=== PATIENT | male | born 1980 | race African-American/Black ===

== ENCOUNTER 2018-09-26 03:24 | Observation (INO) | payer BC ==
[~2018-09-26] VITALS: Ht 180.3 cm; Wt 122.9 kg
[2018-09-26] VITALS (12 sets, daily range): BP systolic 126–164; BP diastolic 57–109; PULSE 75–105; TEMP 98–99.2
[2018-09-26 04:19] LABS: BASO % 0.2 % (0.0-2.0); EOS % 0.2 % (0-4.0); GRAN # 11.6 (1.4-6.5); GRAN % 83.5 % (42.2-75.2); HEMOGLOBIN 15.9 g/dl (13.5-18.0); LYMPH # 1.7 (1.2-3.4); LYMPH % 11.9 % (20.0-51.0); MEAN CELL VOLUME 74 fl (80.0-100.0); MEAN CORPUSCULAR HEMOGLOBIN 26 pg (27.0-31.0); MEAN CORPUSCULAR HGB CONC 35 g/dl (33.0-37.0); MONO # 0.5 (0.1-0.6); MONO % 3.9 % (1.7-9.3); PLATELET COUNT 258 K/mm3 (130-400); RED BLOOD COUNT 6.18 M/mm3 (4.20-5.60); REDCELL DISTRIBUTION WIDTH-CV 14.4 % (11.5-14.5)
[2018-09-26 04:32] LABS: ALBUMIN 4.3 gm/dL (3.5-5.0); C-REACTIVE PROTEIN 1.7 mg/dL (0.0-0.9); CALCIUM 9.4 mg/dL (8.4-10.2); CREATININE, serum 1.15 mg/dL (0.66-1.25); TOTAL PROTEIN 8.1 gm/dL (6.4-8.2)
== END 2018-09-26 18:09 | disposition home or self-care (01) ==
LOC: COL.ER 03:24 → SURG 05:11
PROVIDERS: Emergency Medicine
DX: K35.80 Unspecified acute appendicitis (principal); N20.0 Calculus of kidney; I10 Essential (primary) hypertension
CPT/HCPCS: A4216; G0378; J0690; J0696; J1100; J1170; J1885; J2060; J2270; J2405; J2704; J2710; J3010; J7030; J7120; Q9967

== ENCOUNTER 2019-05-06 11:02 | Emergency (ER) | payer BC ==
[~2019-05-06] VITALS: Ht 180.3 cm; Wt 118.2 kg
[2019-05-06 11:08] VITALS: PULSE 85; TEMP 97.2
[2019-05-06] MEDS ORDERED: FLEXERIL 1010 MG/TAB PO (12:49)
[2019-05-06] MEDS ORDERED: LIDODERM 5% PATC1 EA TP (12:49)
[2019-05-06] MEDS ORDERED: NORCO 325 MG-7.1 TAB PO (12:49)
[2019-05-06 13:53] VITALS: BP 145/80
== END 2019-05-06 14:35 | disposition home or self-care (01) ==
LOC: COL.ER 11:02
DX: S39.012A Strain of muscle, fascia and tendon of lower back, initial encounter (principal); I10 Essential (primary) hypertension; Z90.89 Acquired absence of other organs; Z88.8 Allergy status to other drugs, medicaments and biological substances; X50.1XXA Overexertion from prolonged static or awkward postures, initial encounter
CPT/HCPCS: J1885

== ENCOUNTER 2020-04-18 11:02 | Inpatient (IN) | payer BC ==
[~2020-04-18] VITALS: Ht 180.3 cm; Wt 128.1 kg
[~2020-04-18 11:02] MED LIST: FLEXERIL 1010 MG/TAB PO; LIDODERM 5% PATC1 EA TP; NORCO 325 MG-7.1 TAB PO
[2020-04-18 12:24] LABS: BASO % 0.2 % (0.0-2.0); GRAN # 9.1 (1.4-6.5); GRAN % 78.7 % (42.2-75.2); HEMATOCRIT 43.5 % (42.0-52.0); HEMOGLOBIN 15.4 g/dl (13.5-18.0); LYMPH # 1.7 (1.2-3.4); LYMPH % 14.4 % (20.0-51.0); MEAN CELL VOLUME 73 fl (80.0-100.0); MEAN CORPUSCULAR HEMOGLOBIN 26 pg (27.0-31.0); MEAN CORPUSCULAR HGB CONC 35 g/dl (33.0-37.0); MEAN PLATELET VOLUME 9.8 fl (7.4-10.4); MONO # 0.7 (0.1-0.6); MONO % 6.1 % (1.7-9.3); PLATELET COUNT 229 K/mm3 (130-400); RED BLOOD COUNT 5.94 M/mm3 (4.20-5.60); REDCELL DISTRIBUTION WIDTH-CV 15.4 % (11.5-14.5)
[2020-04-18 12:34] LABS: ALBUMIN 4.1 gm/dL (3.5-5.0); BILIRUBIN,TOTAL 0.8 mg/dL (0.0-1.0); CALCIUM 9.4 mg/dL (8.4-10.2); CREATININE, serum 1.54 (0.66-1.25); POTASSIUM 3.6 mmol/L (3.4-5.0); TOTAL PROTEIN 8.2 gm/dL (6.4-8.2)
[2020-04-18 13:58] LABS: PH 6 (5-8); SQUAMOUS EPITHELIAL 0-2 /hpf; URINE APPEARANCE Clear; URINE BACTERIA None Seen /hpf; URINE BILIRUBIN Negative (NEGATIVE); URINE BLOOD 1+ (NEGATIVE); URINE COLOR Yellow; URINE GLUCOSE Negative (NEGATIVE); URINE KETONE Negative (NEGATIVE); URINE LEUKOCYTE ESTERASE Negative (NEGATIVE); URINE NITRATE Negative (NEGATIVE); URINE PROTEIN(semi-quant) Negative (NEGATIVE); URINE UROBILINOGEN Negative (NEGATIVE)
[2020-04-18 14:02] LABS: COLLECTION METHOD CLEAN CATCH
--- NOTE | 2020-04-18 15:17 | NUR ---
PATIENT ADMITTED TO ROOM 306 COVID ISOLATION RULE OUT. HE VERBALIZES UNDERSTANDING FOR THIS ISOLATION. NO OTHER NEEDS AT THIS TIME. FULL LIQUID DIET HAS ARRIVED
[2020-04-18 15:19] VITALS: BP 180/100; PULSE 92; TEMP 100.8
[2020-04-18 18:13] VITALS: PULSE 106; TEMP 102
[2020-04-18 18:15] VITALS: BP 202/100
--- NOTE | 2020-04-18 18:30 | NUR ---
Patient states that his headache is back. I have rechecked BP and have given prn apresoline at this time.
[2020-04-18 20:16] VITALS: BP 176/76; PULSE 110; TEMP 103.7
--- NOTE | 2020-04-18 20:27 | NUR ---
Pt assessment completed. PT alert and oriented x4. Vital signs obtained- BP 176/76, HR 110, and oral temp 103.7. Pt states he is having thobbing pain to his head that is a 7/10. IVF infusing per orders to right AC IV without complications. Pt denies any other needs at this time. Call light within reach. Will continue to monitor.
--- NOTE | 2020-04-18 21:11 | NUR ---
Call placed to AICHA Humphries, and updated on patient's VS and headache. New orders received for APAP, Motrin, Appresoline, and Norvasc. Given per orders.
[2020-04-18 21:51] VITALS: BP 147/78; PULSE 111; TEMP 103.1
[2020-04-18 23:42] VITALS: BP 151/75; PULSE 95; TEMP 99.5
[2020-04-19] VITALS (8 sets, daily range): BP systolic 142–182; BP diastolic 66–102; PULSE 99–125; TEMP 100.4–104.3
--- NOTE | 2020-04-19 02:36 | NUR ---
Patient had temperature of 100.4. Also complained of headache. Given PRN APAP.
--- NOTE | 2020-04-19 06:10 | NUR ---
Pt awake on and off throughout the night. Temp, BP, and HR elevated during the night. One time dose of tylenol and motrin given per orders for temp of 103.7. PRN tylenol given x1 for temperature of 100.4. Complaints of a "throbbing headache" throughout night. IVF infusing per orders to right AC IV without complications. Pt denies any other needs at this time. Call light within reach. Will continue to monitor.
--- NOTE | 2020-04-19 07:10 | NUR ---
Report given to PAULINA Vazquez
[2020-04-19 09:59] LABS: BASO % 0.2 % (0.0-2.0); GRAN # 8.2 (1.4-6.5); GRAN % 77.7 % (42.2-75.2); HEMATOCRIT 41.6 % (42.0-52.0); HEMOGLOBIN 14.5 g/dl (13.5-18.0); LYMPH # 1.6 (1.2-3.4); LYMPH % 15.5 % (20.0-51.0); MEAN CELL VOLUME 73 fl (80.0-100.0); MEAN CORPUSCULAR HEMOGLOBIN 25 pg (27.0-31.0); MEAN CORPUSCULAR HGB CONC 35 g/dl (33.0-37.0); MEAN PLATELET VOLUME 9.9 fl (7.4-10.4); MONO # 0.7 (0.1-0.6); MONO % 6.2 % (1.7-9.3); PLATELET COUNT 193 K/mm3 (130-400); RED BLOOD COUNT 5.71 M/mm3 (4.20-5.60)
[2020-04-19 10:17] LABS: CALCIUM 8.5 mg/dL (8.4-10.2); CREATININE, serum 1.29 (0.66-1.25); POTASSIUM 3.6 mmol/L (3.4-5.0)
--- NOTE | 2020-04-19 14:59 | NUR ---
SW contacted the patient via room telephone to complete initial intake. The patient lives in [place] with his , Isabela and their children. The patient denies DME use and is independent with ADLs. The patient's PCP is Dr. Regan and patient receives medications from [facility] pharmacy with no difficulties. The patient does not have advanced directives in the EMR. The patient plans to return home at discharge with Isabela providing transportation. ALETA will continue to follow to ensure a safe discharge.
--- NOTE | 2020-04-19 21:15 | NUR ---
Pt assessment completed and documented. Pt alert and oriented x4. Pt states he is having 8/10 throbbing pain located to his head. Temperature 103.3 at this time. PRN tylenol given per orders. IVF infusing per orders to right ac IV site without complications. Pt states he has still not had a bowel movement. Pt denies any other needs at this time. Call light within reach. Will continue to monitor.
[2020-04-20] VITALS (12 sets, daily range): BP systolic 131–167; BP diastolic 75–90; PULSE 107–125; TEMP 99.7–103.6
--- NOTE | 2020-04-20 05:31 | NUR ---
Pt stated he was unable to sleep last night due to headache. Pt stated he did not want anything for headache other than PRN tylenol becauase "the roxicodone did not work". Temperature elevated throughout the night. AICHA Humphries notified of temperature with orders received. PRN tylenol given x2 per orders for fever. One time dose of Motrin given per orders for fever. IVF infusing to right ac IV per orders. Pt denies any other needs at this time. Call light within reach. Will continue to monitor.
--- NOTE | 2020-04-20 06:47 | NUR ---
REPORT GIVEN TO PAULINA KASPER
[2020-04-20 06:49] LABS: BASO % 0.3 % (0.0-2.0); GRAN # 8.1 (1.4-6.5); GRAN % 71.6 % (42.2-75.2); HEMATOCRIT 43.5 % (42.0-52.0); HEMOGLOBIN 15.4 g/dl (13.5-18.0); LYMPH # 2.3 (1.2-3.4); LYMPH % 20.2 % (20.0-51.0); MEAN CELL VOLUME 73 fl (80.0-100.0); MEAN CORPUSCULAR HEMOGLOBIN 26 pg (27.0-31.0); MEAN CORPUSCULAR HGB CONC 35 g/dl (33.0-37.0); MEAN PLATELET VOLUME 10.3 fl (7.4-10.4); MONO # 0.8 (0.1-0.6); MONO % 7.5 % (1.7-9.3); PLATELET COUNT 198 K/mm3 (130-400); RED BLOOD COUNT 5.96 M/mm3 (4.20-5.60); REDCELL DISTRIBUTION WIDTH-CV 15.7 % (11.5-14.5)
[2020-04-20 07:09] LABS: CALCIUM 8.4 mg/dL (8.4-10.2); CREATININE, serum 1.27 (0.66-1.25); POTASSIUM 3.9 mmol/L (3.4-5.0)
--- NOTE | 2020-04-20 09:01 | NUR ---
Pt assessment complete. Pt is laying in bed upon entry. He is A/O x4. His breathing is even and unlabored on RA. Pt denies SOB or cough. No N/V. Pt denies having any stools overnight. Pt reports having a headache that has been unrelieved with medication. No other pain. Cool rags given to patient for elevated temperature. Pt requesting shower later this am. Abx and POC discussed with patient who verbalizes understanding. No needs at this time. Call light within reach.
--- NOTE | 2020-04-20 12:42 | NUR ---
Pt showered states he feels the best he has in a while. Temperature down. Headache has improved. Still no stools. POC discussed with patient who verbalizes understanding. No needs at this time.
--- NOTE | 2020-04-20 13:31 | NUR ---
ALETA contacted the patient via room phone to revisit the discharge plan. The patient plans to return home with his family. ALETA provided a copy of Covid-19 Home Care Discharge Instructions to the patient via his nurse. Will continue to follow.
--- NOTE | 2020-04-20 19:19 | NUR ---
Rested well through the day. Continued to have elevated temperatures, little relief with PRN Tylenol and cold packs. Pt reports lack of appetite this afternoon but no diarrhea. Report given to PAULINA Zhang and PAULINA Garrett.
--- NOTE | 2020-04-20 20:02 | NUR ---
Pt assessment completed and vital signs obtained. Temperature 103.2. PRN tylenol given per orders for fever. Complaints of throbbing pain to head that is rated 8/10. PRN roxicodone given per orders for headache per pt request. IVF infusing per orders to right AC IV. Pt denies any other needs at this time. Call light within reach. Will continue to monitor.
[2020-04-21] VITALS (7 sets, daily range): BP systolic 117–168; BP diastolic 81–93; PULSE 105–114; TEMP 98.9–103.1
--- NOTE | 2020-04-21 05:05 | NUR ---
Pt resting in bed at this time. Pt had uneventful night. Pt stated he was actually able to sleep tonight after receiving PRN melatonin. Lowest temp during the night was 102.4. PRN tylenol given x3 per orders for fevers. Complaints of throbbing headache on and off throughout the night. PRN roxicodone given x1 per orders for pain. IVF infusing per orders to right AC IV. Pt denies any other needs at this time. Call light within reach. Will continue to monitor.
[2020-04-21 07:52] LABS: BASO % 0.4 % (0.0-2.0); EOS % 0.1 % (0-4.0); GRAN # 7.3 (1.4-6.5); GRAN % 65.2 % (42.2-75.2); HEMATOCRIT 41.7 % (42.0-52.0); HEMOGLOBIN 14.8 g/dl (13.5-18.0); LYMPH # 2.6 (1.2-3.4); LYMPH % 23.4 % (20.0-51.0); MEAN CELL VOLUME 73 fl (80.0-100.0); MEAN CORPUSCULAR HEMOGLOBIN 26 pg (27.0-31.0); MEAN CORPUSCULAR HGB CONC 36 g/dl (33.0-37.0); MONO # 1.2 (0.1-0.6); MONO % 10.5 % (1.7-9.3); PLATELET COUNT 199 K/mm3 (130-400); REDCELL DISTRIBUTION WIDTH-CV 15.4 % (11.5-14.5)
[2020-04-21 08:11] LABS: ALBUMIN 3.7 gm/dL (3.5-5.0); BILIRUBIN,TOTAL 0.8 mg/dL (0.0-1.0); CALCIUM 8.2 mg/dL (8.4-10.2); CREATININE, serum 1.27 (0.66-1.25); MAGNESIUM 2.2 mg/dL (1.6-2.3); POTASSIUM 3.7 mmol/L (3.4-5.0); TOTAL PROTEIN 7.6 gm/dL (6.4-8.2)
[2020-04-21 08:20] LABS: INR 1.3 (0.8-3.0); PROTHROMBIN TIME 14.9 SECONDS (9.7-12.8)
--- NOTE | 2020-04-21 11:01 | NUR ---
Patient is alert and oriented. Temp is 102.5. administered Tylenol for fever and moderate pain. Patient was started on Vancomycin IV and Zithromax PO. IV fluid was discontinued. O2 sat is at 94% on RA. Dr Boudreaux shared his concerns saying the O2 sat is low for an healthy adult Male, he said oxygen should be titered as needed, and Hospitalist should be informed when patient is put oxygen.
--- NOTE | 2020-04-21 17:31 | NUR ---
chest xray from today does not show anything different from the previous one. Patient still remain Tachy and Febrile. Tylenol was administered. Patient was encouraged to use icepack for intervention.
--- NOTE | 2020-04-21 20:20 | NUR ---
Received report from [facility]. Patient is febrile, Tylenol given. Flushed INT on right hand and patient complains of pain. Removed INT since patient still have INT on right AC. He requested to have a shower.
--- NOTE | 2020-04-21 22:59 | NUR ---
Patient's INT on right AC is already leaking once flushed. Removed INT. Reinserted at left AC, G22.
[2020-04-22] VITALS (7 sets, daily range): BP systolic 148–174; BP diastolic 76–102; PULSE 91–109; TEMP 98.4–102.1
--- NOTE | 2020-04-22 03:27 | NUR ---
Patient complains of feeling of gasping. He states that he would fall asleep and suddenly the gasping feeling would wake him up and afterwards he would feel okay again. This nurse asked if he feels like he has difficulty of breathing or chest pain and he denies. He said he can't explain exactly how it felt like but he uses the word gasping. Checked his vital signs and SPO2 is at 95%. He is febrile with temp of 102.1. He verbalizes also the feeling of bloatedness since he haven't poop yet in how many days. He said his last bowel movement was Sunday. Tylenol PRN given. Called Shayy HALE to relay the concerns of the patient. She ordered Simethicone chewable. Will re-check patient after an hour.
--- NOTE | 2020-04-22 06:14 | NUR ---
Patient's fever is not consistent anymore. Highest temp all night is 102.1F. Tylenol was given for that. Latest temp is 99.1F. He states his headache is much better now. He didn't ask for pain meds for his headache. Linens were changed. Will endorse to day shift nurse.
[2020-04-22 07:59] LABS: BASO # 0.1 (0.0-0.2); BASO % 0.5 % (0.0-2.0); EOS % 0.2 % (0-4.0); GRAN % 62.2 % (42.2-75.2); HEMATOCRIT 38.8 % (42.0-52.0); HEMOGLOBIN 13.7 g/dl (13.5-18.0); LYMPH # 2.4 (1.2-3.4); LYMPH % 24.7 % (20.0-51.0); MEAN CELL VOLUME 73 fl (80.0-100.0); MEAN CORPUSCULAR HEMOGLOBIN 26 pg (27.0-31.0); MEAN CORPUSCULAR HGB CONC 35 g/dl (33.0-37.0); MEAN PLATELET VOLUME 10.7 fl (7.4-10.4); MONO # 1.1 (0.1-0.6); MONO % 11.7 % (1.7-9.3); PLATELET COUNT 189 K/mm3 (130-400); RED BLOOD COUNT 5.33 M/mm3 (4.20-5.60)
[2020-04-22 08:03] LABS: ALBUMIN 3.4 gm/dL (3.5-5.0); CALCIUM 8.3 mg/dL (8.4-10.2); CREATININE, serum 1.04 (0.66-1.25); MAGNESIUM 2.2 mg/dL (1.6-2.3); TOTAL PROTEIN 7.1 gm/dL (6.4-8.2)
--- NOTE | 2020-04-22 08:32 | NUR ---
Pt awake and alert this morinung upon entry, no C/O pain at this time, talkative, shift assessments complete, left Pt call light in reach, bed in lowest position.
--- NOTE | 2020-04-22 16:05 | NUR ---
Hospitalist informed SW that the patient's employer needed some information about hospitization and that the patient needed an email to send it to. SW contacted the patient via room telephone. SW provided the patient with email. SW received the letter. SW to staff with hospitalist about this letter.
--- NOTE | 2020-04-22 18:25 | NUR ---
Pt resting in the room doing well, no C/O pain throughout today, VS have re,mained stable.
[2020-04-23] VITALS: BP 158/102; PULSE 92; TEMP 98.5
--- NOTE | 2020-04-23 06:16 | NUR ---
Max temperature tonight was 100.8 at 2200. Tylenol administered for this and fever broke an hour later to 98.3. Patient has complained of a mild headache throughout the night but has gotten lots of rest. Will continue to monitor.
[2020-04-23 08:08] VITALS: BP 137/75; PULSE 94; TEMP 100.2
--- NOTE | 2020-04-23 08:24 | NUR ---
Pt sleeping upon entry, easily awakened, no C/O pain at this time, shift assessments complete, left Pt call light in reach, bed in lowest position.
[2020-04-23 13:14] VITALS: BP 120/69; PULSE 92; TEMP 99.3
--- NOTE | 2020-04-23 15:43 | NUR ---
ALETA gave the letter to the patient's nurse. ALETA attempted to contact the patient's room to inform him and revisit the discharge plan. He did not answer. Will continue to monitor.
[2020-04-23 16:51] VITALS: BP 131/77; PULSE 104; TEMP 99.6
--- NOTE | 2020-04-23 18:20 | NUR ---
Pt resting in the room today, no C/O pain throughout the day. VS have remained stable.
--- NOTE | 2020-04-23 19:20 | NUR ---
Received report from Taj. Seen patient awake, lying in bed. He is febrile with temp of 100.8F. Tylenol PRN given. Patient denies pain. States he doesn't have headache now. Will continue to monitor.
[2020-04-23 19:22] VITALS: BP 152/80; PULSE 102; TEMP 100.8
[2020-04-23 21:36] VITALS: TEMP 99.3
[2020-04-24] VITALS (7 sets, daily range): BP systolic 104–156; BP diastolic 71–84; PULSE 93–104; TEMP 98.5–101.2
--- NOTE | 2020-04-24 06:10 | NUR ---
Patient still had febrile episode. Denies headache and diarrhea. Will endorse to day shift nurse.
--- NOTE | 2020-04-24 09:02 | NUR ---
Pt awake and alert upon entry, no C/O pain at this time, shift assessments complete, left Pt call light in reachk, bed in lowest position.
--- NOTE | 2020-04-24 19:22 | NUR ---
Pt resting in the room today, no C/O pain, VS have remained stable.
--- NOTE | 2020-04-24 20:00 | NUR ---
Received report from PAULINA Vang. A/Ox4. Denies any pain or discomfort. Meds administered. INT to LAC intact, flushed, dressing cdi. Pt showered this evening. Tele monito in place. Needs met at this time. call light within reach. Ambulatory. INdepedent in room.
[2020-04-25 03:45] VITALS: BP 129/67; PULSE 86; TEMP 99.4
--- NOTE | 2020-04-25 07:22 | NUR ---
pt uneventful during this shift. meds administered. pt had a shower on this shift. needs met. call light within reach.
[2020-04-25 07:32] LABS: CALCIUM 8.9 mg/dL (8.4-10.2); CREATININE, serum 2.87 (0.66-1.25); MAGNESIUM 2.5 mg/dL (1.6-2.3); POTASSIUM 3.9 mmol/L (3.4-5.0)
[2020-04-25 07:37] LABS: HEMATOCRIT 38.8 % (42.0-52.0); HEMOGLOBIN 13.6 g/dl (13.5-18.0); MEAN CELL VOLUME 73 fl (80.0-100.0); MEAN CORPUSCULAR HEMOGLOBIN 26 pg (27.0-31.0); MEAN CORPUSCULAR HGB CONC 35 g/dl (33.0-37.0); MEAN PLATELET VOLUME 10.1 fl (7.4-10.4); RED BLOOD COUNT 5.29 M/mm3 (4.20-5.60); REDCELL DISTRIBUTION WIDTH-CV 14.9 % (11.5-14.5)
[2020-04-25 07:42] LABS: PLATELET COUNT 430 K/mm3 (130-400)
[2020-04-25 09:04] LABS: BAND 1 % (0-10); EOSINOPHIL 3 % (0-4); LYMPHOCYTE 22 % (20.0-51.0); NEUTROPHILS 55 % (42.0-75.2)
[2020-04-25 09:05] LABS: PLATELET ESTIMATE INCREASED (NORMAL)
[2020-04-25 09:06] VITALS: BP 147/97; BP 1474/97; PULSE 91; TEMP 99.3
[2020-04-25 09:07] LABS: TARGET CELLS 1+
[2020-04-25 09:08] LABS: MICROCYTOSIS 1+
[2020-04-25 13:05] VITALS: BP 149/85; PULSE 142; TEMP 101.9
[2020-04-25 16:44] VITALS: BP 147/85; PULSE 104; TEMP 102.8
--- NOTE | 2020-04-25 18:57 | NUR ---
Pt resting in the room today, he has had no C/O pain during the day. Pt has been sleeping on and off. VS have remained stable.
--- NOTE | 2020-04-25 20:00 | NUR ---
Received report from PAULINA Vang. Pt sleeping upon entry, easily awakened to voice. denies any pain or discomfort at this time. Afebrile at this time. Fluids infusing to LAC IV, intact. Tele monitor in place. Meds adminsitered. Pt has no complaints at this time. Call light within reach.
[2020-04-25 20:02] VITALS: BP 129/60; PULSE 102; TEMP 98.1
[2020-04-26] VITALS (8 sets, daily range): BP systolic 122–158; BP diastolic 61–86; PULSE 78–105; TEMP 98.1–101.6
--- NOTE | 2020-04-26 06:16 | NUR ---
Pt made no complaints during this shift. Meds administered. Had temp of 101.0, tylenol administered with decrease in temp. Needs met. Call light within reach.
[2020-04-26 06:34] LABS: HEMOGLOBIN 12.6 g/dl (13.5-18.0); MEAN CELL VOLUME 73 fl (80.0-100.0); MEAN CORPUSCULAR HEMOGLOBIN 26 pg (27.0-31.0); MEAN CORPUSCULAR HGB CONC 35 g/dl (33.0-37.0); MEAN PLATELET VOLUME 10.1 fl (7.4-10.4); PLATELET COUNT 446 K/mm3 (130-400); REDCELL DISTRIBUTION WIDTH-CV 14.8 % (11.5-14.5)
[2020-04-26 06:39] LABS: HEMATOCRIT 35.9 % (42.0-52.0)
[2020-04-26 06:55] LABS: CALCIUM 8.8 mg/dL (8.4-10.2); CREATININE, serum 3.56 (0.66-1.25); MAGNESIUM 2.6 mg/dL (1.6-2.3); POTASSIUM 4.2 mmol/L (3.4-5.0)
--- NOTE | 2020-04-26 06:58 | NUR ---
Report given to PAULINA Rosen.
[2020-04-26 07:52] LABS: BAND 6 % (0-10); BASOPHIL 1 % (0-2); EOSINOPHIL 2 % (0-4); NEUTROPHILS 50 % (42.0-75.2)
[2020-04-26 07:55] LABS: LYMPHOCYTE 35 % (20.0-51.0); METAMYELOCYTE 2 % (0-0)
[2020-04-26 07:58] LABS: PLATELET ESTIMATE INCREASED (NORMAL)
[2020-04-26 08:00] LABS: TARGET CELLS 1+
[2020-04-26 08:01] LABS: MICROCYTOSIS 1+
[2020-04-26 10:37] LABS: COLLECTION METHOD CLEAN CATCH
[2020-04-26 10:46] LABS: PH 6 (5-8); SQUAMOUS EPITHELIAL None Seen /hpf; URINE APPEARANCE Clear; URINE BACTERIA Rare /hpf; URINE BILIRUBIN Negative (NEGATIVE); URINE BLOOD 1+ (NEGATIVE); URINE COLOR Straw; URINE GLUCOSE 1+ (NEGATIVE); URINE KETONE Negative (NEGATIVE); URINE LEUKOCYTE ESTERASE Negative (NEGATIVE); URINE NITRATE Negative (NEGATIVE); URINE PROTEIN(semi-quant) Negative (NEGATIVE); URINE UROBILINOGEN Negative (NEGATIVE)
[2020-04-26 17:44] LABS: CREATININE, serum 3.42 (0.66-1.25); FRACTIONAL EXCRETION OF NA+ 3.6 %
--- NOTE | 2020-04-26 19:33 | NUR ---
Patient is alert and oriented. was afebrile till this even temp was 101.6. Dr Valdez was consulted this morning for JOYCE evident by elevated CR. LABS AND URINE Specimen was ordered. Patient continues to take Antibiotics and Fluids. Report given to PAULINA Miramontes
--- NOTE | 2020-04-26 21:09 | NUR ---
PT IN BED LAYING ON STOMACH, TELEMETRY HARD TO KEEP ON. ADVISED PT TO TRY AND LAY IN DIFFERENT POSITION THAT WILL NOT TAKE OFF HIS TELEY PADS. PT PLEASANT AND COOPERATIVE, DENIES PAIN OR DISCOMFORT AND NO NEEDS AT THIS TIME. CALL LIGHT WITHIN REACH.
[2020-04-27 04:00] VITALS: BP 149/40; PULSE 95; TEMP 99.3
--- NOTE | 2020-04-27 07:09 | NUR ---
NO ISSUES DURING THE NIGHT. PT SLEPT WELL WITH CALL LIGHT WITHIN REACH.
[2020-04-27 07:58] LABS: HEMOGLOBIN 12.8 g/dl (13.5-18.0); MEAN CELL VOLUME 73 fl (80.0-100.0); MEAN CORPUSCULAR HEMOGLOBIN 25 pg (27.0-31.0); MEAN CORPUSCULAR HGB CONC 35 g/dl (33.0-37.0); MEAN PLATELET VOLUME 9.7 fl (7.4-10.4); PLATELET COUNT 501 K/mm3 (130-400); RED BLOOD COUNT 5.03 M/mm3 (4.20-5.60); REDCELL DISTRIBUTION WIDTH-CV 14.7 % (11.5-14.5)
[2020-04-27 08:15] LABS: CALCIUM 8.9 mg/dL (8.4-10.2); CREATININE, serum 3.25 (0.66-1.25); POTASSIUM 4.5 mmol/L (3.4-5.0)
[2020-04-27 08:16] LABS: HEMATOCRIT 36.8 % (42.0-52.0)
[2020-04-27 08:23] VITALS: BP 139/77; PULSE 92; TEMP 99
[2020-04-27 09:27] LABS: BAND 2 % (0-10); EOSINOPHIL 1 % (0-4); LYMPHOCYTE 33 % (20.0-51.0); NEUTROPHILS 59 % (42.0-75.2)
[2020-04-27 09:36] LABS: TARGET CELLS 1+
[2020-04-27 09:38] LABS: MICROCYTOSIS 1+
[2020-04-27 09:40] LABS: PLATELET ESTIMATE INCREASED (NORMAL)
[2020-04-27 11:32] VITALS: BP 146/84; PULSE 100; TEMP 98.6
[2020-04-27 16:35] VITALS: BP 152/87; PULSE 98; TEMP 101.7
--- NOTE | 2020-04-27 16:47 | NUR ---
Programming Engineer collaborated with PAULINA Ford who advised patient has been independent in his room. SW will continue to follow.
[2020-04-27 17:30] VITALS: TEMP 99.9
--- NOTE | 2020-04-27 21:10 | NUR ---
Received report from Liliana. Seen patient awake, lying in bed. He denies pain. With IV at left forearm infusing NS at 75ml/hr. Patient requests to take a shower. INT covered with ziplock. Bed linens were changed. Call light within reach.
[2020-04-27 21:24] VITALS: BP 143/92; PULSE 95; TEMP 98.3
[2020-04-28 00:08] VITALS: BP 159/98; PULSE 87; TEMP 99.1
--- NOTE | 2020-04-28 00:20 | NUR ---
Patient states he can't sleep. Melatonin PRN given. Denies pain.
[2020-04-28 02:45] VITALS: TEMP 99.8
[2020-04-28 05:14] VITALS: BP 164/82; PULSE 67; TEMP 99
[2020-04-28 06:18] LABS: HEMATOCRIT 37.3 % (42.0-52.0); HEMOGLOBIN 12.9 g/dl (13.5-18.0); MEAN CELL VOLUME 74 fl (80.0-100.0); MEAN CORPUSCULAR HEMOGLOBIN 26 pg (27.0-31.0); MEAN CORPUSCULAR HGB CONC 35 g/dl (33.0-37.0); MEAN PLATELET VOLUME 9.7 fl (7.4-10.4); PLATELET COUNT 544 K/mm3 (130-400); RED BLOOD COUNT 5.04 M/mm3 (4.20-5.60); REDCELL DISTRIBUTION WIDTH-CV 14.6 % (11.5-14.5)
[2020-04-28 06:27] LABS: CALCIUM 9.4 mg/dL (8.4-10.2); CREATININE, serum 2.9 (0.66-1.25); POTASSIUM 4.3 mmol/L (3.4-5.0)
--- NOTE | 2020-04-28 06:31 | NUR ---
Patient winn an uneventful night. Afebrile the whole shift. Denies any pain. Will endorse to day shift nurse.
[2020-04-28 07:38] LABS: BAND 2 % (0-10); EOSINOPHIL 3 % (0-4); MICROCYTOSIS 1+; NEUTROPHILS 60 % (42.0-75.2); PLATELET ESTIMATE INCREASED (NORMAL); TARGET CELLS 1+
[2020-04-28 07:39] LABS: LYMPHOCYTE 28 % (20.0-51.0)
[2020-04-28 08:30] VITALS: BP 129/68; PULSE 97; TEMP 37.1
[2020-04-28] MEDS ORDERED: TYLENOL 325MG325 MG PO (12:25)
[2020-04-28] MEDS ORDERED: NORVASC 10MG10 MG PO (12:25)
[2020-04-28] MEDS ORDERED: MONODOX100 PO (12:25)
--- NOTE | 2020-04-28 16:18 | NUR ---
Patient DC to home @ 1530 accompanie by family. At time of DC patient A/O x 4. Denies c/o pain or shortness of air. Printed DC instructions to include, follow up, lab work, medications, and continue quaratine reviewed with patient. All questions answered during review. Left unit ambulatory accompanied by PCT. DC papers not signed for infection control. Verbal understanding of instructions.
== END 2020-04-28 15:30 | disposition home or self-care (01) | DRG 871 ==
LOC: COL.ER 11:02 → MEDICAL 13:51
PROVIDERS: Internal Medicine; Internal Medicine Nephrology; Nurse Practitioner Primary Care; Physician Assistant; Student in an Organized Health Care Education/Training Program; ADMIT Family Medicine
DX: A41.89 Other specified sepsis (principal); U07.1 COVID-19; J18.9 Pneumonia, unspecified organism; N17.0 Acute kidney failure with tubular necrosis; E87.1 Hypo-osmolality and hyponatremia; I10 Essential (primary) hypertension; E66.01 Morbid (severe) obesity due to excess calories; E86.0 Dehydration
CPT/HCPCS: 99232-AI; 99233-AI; 99239; G0378; J0360; J1644; J1650; J1885; J2405; J2543; J3370; J7030; J7040; J7050; J7120